=== PATIENT | female | born 1985 | race African-American/Black ===

== ENCOUNTER 2022-04-15 17:38 | Inpatient (IN) | payer BC ==
[2022-04-15] MEDS ORDERED: Acetaminophen 500 MG TAB ONE (18:36)
[2022-04-15] MEDS ORDERED: cefTRIAXone\\ROCEPHIN 1 GM VIAL ONE (18:37)
[2022-04-15 18:51] LABS: #Eosinphils 0.1 10x3/uL (0.0-0.5); #Monocytes 1.5 10x3/uL (0.0-1.1); #Neutrophils 6.8 10x3/uL (1.5-8.4); %Basophils 0.4 % (0.0-2.0); %Eosinophils 0.7 % (0.0-6.0); %Lymphocytes 13.8 % (18.0-47.0); %Monocytes 14.9 % (0.0-10.0); %Neutrophils 69.7 % (40.0-75.0); Hemoglobin 11.2 g/dL (12.0-15.5); Mean Corpuscular HGB CONC 34.7 g/dL (32.0-36.0); Mean Corpuscular Hemoglobin 26.5 pg (27.0-33.0); Mean Corpuscular Volume 76.4 fl (81.6-98.3); Mean Platelet Volume 8.7 fl (7.4-10.4); Platelet Count 133 10x3/uL (150-450); RBC Distribution Width 26.5 % (11.5-14.5); Red Blood Cell (RBC) Count 4.23 10x6/uL (3.90-5.03); White Blood Cell (WBC) Count 9.7 10x3/uL (3.5-10.5)
[2022-04-15 19:03] LABS: ALT (SGPT) 9 U/L (8-55); AST (SGOT) 20 U/L (5-34); Albumin 3.8 g/dL (3.5-5.0); Alkaline Phosphatase 43 U/L (40-110); Anion Gap 16 mmol/L (10-20); BUN (Urea Nitrogen) 27 mg/dL (7.0-18.7); Bilirubin, Total 1.7 mg/dL (0.2-1.2); CK (CPK) 46 U/L (29-168); Calc. Creatinine Clearance 0 mL/min (70-130); Calcium 9.2 mg/dL (7.8-10.44); Carbon Dioxide 30 mmol/L (22-29); Chloride 98 mmol/L (98-107); Estimated GFR 7; Globulin 3.1 g/dL (2.4-3.5); Glucose 84 mg/dL (70-105); Potassium 4.3 mmol/L (3.5-5.1); Protein, Total 6.9 g/dL (6.0-8.3); Sodium 140 mmol/L (136-145)
[2022-04-15 19:20] LABS: Band 1 % (5-11); Lymphocytes 12 % (21-51); Monocytes 14 % (0-10); Reactive Lymphocytes 2 % (0-10)
[2022-04-15 19:21] LABS: SARS-CoV-2 NAA Rapid Test Not Detected (NotDetected)
[2022-04-15 19:21] LABS: Anisocytosis MODERATE=16-30 cells (100X) (0-5/hpf); Macrocytosis SLIGHT = 6-15 cells (100X) (0-5/hpf); Microcytosis SLIGHT = 6-15 cells (100X) (0-5/hpf); Neutrophil 70 % (42-75)
[2022-04-15 19:22] LABS: Hypochromia SLIGHT = 6-15 cells (100X) (0-5/hpf); Target Cells SLIGHT = 2-5 cells (100X) (0-1/hpf)
[2022-04-15 19:26] LABS: Large Platelets SLIGHT; Platelet Morphology Comment Appears Adequate
[2022-04-15] MEDS ORDERED: Azithromycin 500 MG VIAL ONE (19:38)
[2022-04-15] MEDS ORDERED: Morphine 4 MG/ML VIAL ONE (19:58)
[2022-04-15] MEDS ORDERED: Calcium Carbonate 500 MG ChewTAB PO PRN (22:14)
[2022-04-15] MEDS ORDERED: Senokot S 8.6-50 MG TAB PO PRN (22:14)
[2022-04-15] MEDS ORDERED: Guaifenesin DM 100-10/5 ML UDCUP PO PRN (22:14)
[2022-04-15] MEDS ORDERED: Ondansetron PF 4 MG/2 ML Vial IVP PRN (22:14)
[2022-04-15] MEDS ORDERED: Zolpidem Tartrate 5 MG TAB PO PRN (22:14)
[2022-04-15 22:16] LABS: Hep B Surf Ag Non-Reactive S/CO (NonReactive)
[2022-04-15 22:17] LABS: HBSAg Index 0.21 S/CO (0-0.99)
[2022-04-16] MEDS: Acetaminophen 325 MG TAB PO PRN ×2 (01:34→08:59)
[2022-04-16] MEDS ORDERED: Acetaminophen 325 MG TAB ONE ×2 (01:36→09:06)
[2022-04-16 05:01] LABS: Anion Gap 15 mmol/L (10-20); BUN (Urea Nitrogen) 13 mg/dL (7.0-18.7); Calc. Creatinine Clearance 0 mL/min (70-130); Calcium 9.3 mg/dL (7.8-10.44); Carbon Dioxide 29 mmol/L (22-29); Chloride 98 mmol/L (98-107); Estimated GFR 12; Glucose 70 mg/dL (70-105); Potassium 4.1 mmol/L (3.5-5.1); Sodium 138 mmol/L (136-145)
[2022-04-16] MEDS ORDERED: Sevelamer Carbonate 800 MG TAB PO SCH (08:00)
[2022-04-16] MEDS ORDERED: predniSONE 5 MG TAB PO SCH (08:00)
[2022-04-16] MEDS ORDERED: Carvedilol 25 MG TAB PO SCH (08:00)
[2022-04-16] MEDS ORDERED: Calcitriol 0.25 MCG CAP PO SCH (09:00)
[2022-04-16] MEDS ORDERED: Heparin 5,000 UNITS/ML VIAL SC SCH (09:00)
[2022-04-16] MEDS ORDERED: Hydroxychloroquine Sulfate 200 MG TAB PO SCH (09:00)
[2022-04-16] MEDS ORDERED: Heparin 5,000 UNITS/ML VIAL ONE (09:06)
[2022-04-16] MEDS ORDERED: Carvedilol 25 MG TAB ONE (09:07)
[2022-04-16] MEDS ORDERED: Heparin 10,000 UNITS/ 10 ML VIAL SLOW IVP PRN (12:51)
[2022-04-16 13:48] LABS: HBSAB Concentration Less than 8.00 mIU/mL; Hep B Surf AB Non-Reactive (NonReactive)
[2022-04-16] MEDS ORDERED: NIFEdipine XL 60 MG TAB PO SCH (21:00)
== END 2022-04-16 16:01 | disposition home or self-care (01) | DRG 291 ==
LOC: CSHERS 17:38 → CSHERHOLD 21:08
PROVIDERS: ADMIT Student in an Organized Health Care Education/Training Program; ATTEND Nurse Practitioner Family
PROC: 5A1D70Z Performance of Urinary Filtration, Intermittent, Less than 6 Hours Per Day (ICD-10-PCS; principal; 2022-04-15)
DX: I50.33 Acute on chronic diastolic (congestive) heart failure (principal); J96.01 Acute respiratory failure with hypoxia; N18.6 End stage renal disease; T86.12 Kidney transplant failure; Z20.822 Contact with and (suspected) exposure to COVID-19; I34.0 Nonrheumatic mitral (valve) insufficiency; M32.14 Glomerular disease in systemic lupus erythematosus; G89.29 Other chronic pain; I15.8 Other secondary hypertension; Y84.8 Other medical procedures as the cause of abnormal reaction of the patient, or of later complication, without mention of misadventure at the time of the procedure; D63.1 Anemia in chronic kidney disease; D50.9 Iron deficiency anemia, unspecified; Z88.6 Allergy status to analgesic agent; Z88.8 Allergy status to other drugs, medicaments and biological substances; Z79.899 Other long term (current) drug therapy; Z79.51 Long term (current) use of inhaled steroids; Z99.2 Dependence on renal dialysis; Z91.14 Patient's other noncompliance with medication regimen
CPT/HCPCS: 36415; 71045; 80048; 80053; 82550; 83605; 83880; 84484; 85025; 86706; 87040; 87340; 90935; 93005; 94760; G0257; J0456; J0696; J1644; J2270; J7512

== ENCOUNTER 2022-06-09 16:49 | Emergency (ER) | payer BC | END 2022-06-09 18:05 | disposition home or self-care (01) | LOC: CSHERS 16:49 | DX: L93.2 Other local lupus erythematosus (principal); R21 Rash and other nonspecific skin eruption; R05.9 Cough, unspecified; H57.89 Other specified disorders of eye and adnexa; I12.0 Hypertensive chronic kidney disease with stage 5 chronic kidney disease or end stage renal disease; N18.6 End stage renal disease; Z99.2 Dependence on renal dialysis | CPT/HCPCS: 99283 ==

== ENCOUNTER 2022-08-25 22:07 | Inpatient (IN) | payer BC ==
[~2022-08-25 22:07] MED LIST: Iopamidol 300 61% 100 ML VIAL FS ONE
[2022-08-25 23:19] LABS: #Eosinphils 0.5 10x3/uL (0.0-0.5); #Monocytes 0.8 10x3/uL (0.0-1.1); #Neutrophils 5.9 10x3/uL (1.5-8.4); %Basophils 0.4 % (0.0-2.0); %Eosinophils 5.4 % (0.0-6.0); %Monocytes 9.1 % (0.0-10.0); %Neutrophils 68.7 % (40.0-75.0); Hemoglobin 9.4 g/dL (12.0-15.5); Mean Corpuscular HGB CONC 36.4 g/dL (32.0-36.0); Mean Corpuscular Volume 76.8 fl (81.6-98.3); Mean Platelet Volume 8.2 fl (7.4-10.4); Platelet Count 274 10x3/uL (150-450); RBC Distribution Width 18.7 % (11.5-14.5); Red Blood Cell (RBC) Count 3.36 10x6/uL (3.90-5.03); White Blood Cell (WBC) Count 8.5 10x3/uL (3.5-10.5)
[2022-08-25] MEDS ORDERED: Acetaminophen 500 MG TAB ONE (23:32)
[2022-08-25 23:33] LABS: ALT (SGPT) Less than 6 U/L (8-55); AST (SGOT) 13 U/L (5-34); Albumin 3.1 g/dL (3.5-5.0); Alkaline Phosphatase 48 U/L (40-110); Anion Gap 20 mmol/L (10-20); BHCG - Serum Negative (NEGATIVE); BUN (Urea Nitrogen) 57 mg/dL (7.0-18.7); Bilirubin, Total 0.6 mg/dL (0.2-1.2); Calc. Creatinine Clearance 0 mL/min (70-130); Calcium 9.1 mg/dL (7.8-10.44); Carbon Dioxide 22 mmol/L (22-29); Chloride 99 mmol/L (98-107); Estimated GFR 2; Globulin 4.3 g/dL (2.4-3.5); Glucose 82 mg/dL (70-105); Lipase 43 U/L (8-78); Magnesium 2.4 mg/dL (1.6-2.6); Potassium 5.6 mmol/L (3.5-5.1); Pregs Control Background? CLEAR/WHITE (CLR/WHITE); Pregs Control Bar Appear? YES (CONTROL BAR); Protein, Total 7.4 g/dL (6.0-8.3); Sodium 135 mmol/L (136-145)
[2022-08-25] MEDS ORDERED: Morphine 4 MG/ML VIAL ONE (23:40)
[2022-08-26 00:17] LABS: SARS-CoV-2 NAA Rapid Test Not Detected (NotDetected)
[2022-08-26] MEDS ORDERED: Cefepime 1 GM VIAL ONE (00:25)
[2022-08-26] MEDS ORDERED: Zolpidem Tartrate 5 MG TAB PO PRN (02:05)
[2022-08-26] MEDS ORDERED: Calcium Carbonate 500 MG ChewTAB PO PRN (02:05)
[2022-08-26] MEDS ORDERED: Ondansetron PF 4 MG/2 ML Vial IVP PRN (02:05)
[2022-08-26] MEDS ORDERED: Senokot S 8.6-50 MG TAB PO PRN (02:05)
[2022-08-26] MEDS ORDERED: Acetaminophen 325 MG TAB PO PRN (02:05)
[2022-08-26] MEDS ORDERED: Guaifenesin DM 100-10/5 ML UDCUP PO PRN (02:05)
[2022-08-26] MEDS ORDERED: Vancomycin 1 GM in Premix Bag 1 BAG IVPB SCH (02:15)
[2022-08-26] MEDS ORDERED: Calcium Gluc 4.6 MEQ/10 ML (100 MG/ML) SLOW IVP SCH (02:15)
[2022-08-26] MEDS ORDERED: Vancomycin HCl 1 GM in Sodium Chloride 0.9% 250 ML 250 ML IVPB SCH (03:15)
[2022-08-26] MEDS ORDERED: Calcium Gluc 4.6 MEQ/10 ML (100 MG/ML) ONE (03:47)
[2022-08-26 04:27] LABS: Anion Gap 16 mmol/L (10-20); BUN (Urea Nitrogen) 59 mg/dL (7.0-18.7); Calc. Creatinine Clearance 0 mL/min (70-130); Calcium 8.9 mg/dL (7.8-10.44); Carbon Dioxide 24 mmol/L (22-29); Chloride 98 mmol/L (98-107); Estimated GFR 2; Glucose 93 mg/dL (70-105); Sodium 132 mmol/L (136-145)
[2022-08-26 04:29] LABS: Potassium 6.3 mmol/L (3.5-5.1)
[2022-08-26] MEDS ORDERED: Dextrose 50% Abboject 50 ML SYRINGE ONE (04:47)
[2022-08-26] MEDS ORDERED: Insulin Regular 300 UNITS/3 ML VIAL ONE (04:48)
[2022-08-26] MEDS ORDERED: Albuterol Sulfate 2.5 mg/3 ml Neb ONE ×2 (05:15→05:27)
[2022-08-26] MEDS ORDERED: Albuterol Sulfate 2.5 mg/0.5 ml Neb ONE (05:16)
[2022-08-26] MEDS: Sevelamer Carbonate 800 MG TAB PO SCH ×3 (08:32→17:24)
[2022-08-26] MEDS: predniSONE 5 MG TAB PO SCH (08:32)
[2022-08-26] MEDS ORDERED: Famotidine 20 MG TAB PO SCH (09:00)
[2022-08-26 10:11] LABS: HBSAg Index 0.24 S/CO (0-0.99); Hep B Surf Ag Non-Reactive S/CO (NonReactive)
[2022-08-26] MEDS ORDERED: Tacrolimus 1 MG CAP PO SCH (12:45)
[2022-08-26] MEDS ORDERED: methylPREDNISolone Sod Succ 40 MG VIAL IVP SCH (13:30)
[2022-08-26] MEDS ORDERED: Famotidine 20 MG TAB ONE (13:30)
[2022-08-26] MEDS ORDERED: Heparin 5,000 UNITS/ML VIAL ONE ×2 (13:31→20:42)
[2022-08-26] MEDS: Carvedilol 6.25 MG TAB PO SCH ×2 (13:42→21:13)
[2022-08-26] MEDS: Heparin 5,000 UNITS/ML VIAL SC SCH ×2 (13:43→21:12)
[2022-08-26 13:44] LABS: Anion Gap 15 mmol/L (10-20); BUN (Urea Nitrogen) 13 mg/dL (7.0-18.7); Calc. Creatinine Clearance 0 mL/min (70-130); Calcium 9.2 mg/dL (7.8-10.44); Carbon Dioxide 28 mmol/L (22-29); Chloride 98 mmol/L (98-107); Estimated GFR 9; Glucose 72 mg/dL (70-105); Potassium 3.3 mmol/L (3.5-5.1); Sodium 138 mmol/L (136-145)
[2022-08-26] MEDS ORDERED: NIFEdipine XL 30 MG TAB ONE (13:50)
[2022-08-26] MEDS ORDERED: methylPREDNISolone Sod Succ 40 MG VIAL ONE (13:52)
[2022-08-26] MEDS ORDERED: Morphine 4 MG/ML VIAL ONE (13:57)
[2022-08-26] MEDS ORDERED: Morphine 2 MG/ML VIAL SLOW IVP PRN (13:58)
[2022-08-26] MEDS: NIFEdipine XL 30 MG TAB PO SCH (14:07)
[2022-08-26] MEDS: Hydroxychloroquine Sulfate 200 MG TAB PO SCH (14:07)
[2022-08-26] MEDS: Morphine 2 MG/ML VIAL SLOW IVP PRN (14:08)
[2022-08-26] MEDS ORDERED: Vancomycin Hemodialysis Sliding Scale FS SCH (15:45)
[2022-08-26 16:18] LABS: HBSAB Concentration Less than 8.00 mIU/mL; Hep B Core Total Ab Non-Reactive (NonReactive); Hep B Core Total Index 0.21 S/CO (0-0.79); Hep B Surf AB Non-Reactive (NonReactive); Hep C IgG Ab Non-Reactive (NonReactive); Hep C Index 0.14 S/CO (0-0.79)
[2022-08-26] MEDS ORDERED: Ondansetron PF 4 MG/2 ML Vial ONE (19:46)
[2022-08-26] MEDS: Tacrolimus 1 MG CAP PO SCH (21:13)
[2022-08-27] MEDS ORDERED: Morphine 4 MG/ML VIAL ONE ×2 (00:08→04:14)
[2022-08-27] MEDS: Morphine 2 MG/ML VIAL SLOW IVP PRN ×2 (00:14→04:20)
[2022-08-27] MEDS ORDERED: Cefepime 1 GM VIAL ONE (00:54)
[2022-08-27] MEDS ORDERED: Cefepime 1 GM in Sodium Chloride 0.9% 100 ML IVPB SCH (01:00)
[2022-08-27 04:34] LABS: #Monocytes 0.2 10x3/uL (0.0-1.1); #Neutrophils 4.1 10x3/uL (1.5-8.4); %Basophils 0.2 % (0.0-2.0); %Lymphocytes 11.7 % (18.0-47.0); %Monocytes 4.6 % (0.0-10.0); %Neutrophils 83.3 % (40.0-75.0); Hemoglobin 9.4 g/dL (12.0-15.5); Mean Corpuscular HGB CONC 35.5 g/dL (32.0-36.0); Mean Corpuscular Hemoglobin 27.7 pg (27.0-33.0); Mean Corpuscular Volume 78.2 fl (81.6-98.3); Mean Platelet Volume 8.5 fl (7.4-10.4); Platelet Count 237 10x3/uL (150-450); RBC Distribution Width 18.6 % (11.5-14.5); Red Blood Cell (RBC) Count 3.39 10x6/uL (3.90-5.03)
[2022-08-27 04:48] LABS: Anion Gap 15 mmol/L (10-20); BUN (Urea Nitrogen) 27 mg/dL (7.0-18.7); Calc. Creatinine Clearance 0 mL/min (70-130); Carbon Dioxide 27 mmol/L (22-29); Chloride 98 mmol/L (98-107); Estimated GFR 4; Glucose 173 mg/dL (70-105); Potassium 5.3 mmol/L (3.5-5.1); Sodium 135 mmol/L (136-145)
[2022-08-27 07:31] LABS: Vancomycin, Random 15.7 ug/mL (See Comment)
[2022-08-27] MEDS ORDERED: NIFEdipine XL 30 MG TAB ONE (08:11)
[2022-08-27] MEDS ORDERED: Heparin 5,000 UNITS/ML VIAL ONE (08:14)
[2022-08-27] MEDS: Heparin 5,000 UNITS/ML VIAL SC SCH ×5 (08:24→21:38)
[2022-08-27] MEDS: Sevelamer Carbonate 800 MG TAB PO SCH ×3 (08:25→17:14)
[2022-08-27] MEDS: predniSONE 5 MG TAB PO SCH (08:25)
[2022-08-27] MEDS: Hydroxychloroquine Sulfate 200 MG TAB PO SCH (08:25)
[2022-08-27] MEDS: Carvedilol 6.25 MG TAB PO SCH ×2 (08:25→21:31)
[2022-08-27] MEDS: Tacrolimus 1 MG CAP PO SCH ×2 (08:26→21:32)
[2022-08-27] MEDS: NIFEdipine XL 30 MG TAB PO SCH (08:26)
[2022-08-27 13:37] VITALS: BMI 18.5
[2022-08-27] MEDS: Morphine 4 MG/ML VIAL SLOW IVP PRN ×3 (13:53→21:37)
[2022-08-27] MEDS ORDERED: NIFEdipine XL 30 MG TAB PO SCH ×2 (16:00→21:00)
[2022-08-27] MEDS ORDERED: Famotidine 20 MG TAB PO SCH (17:00)
[2022-08-27 21:33] VITALS: BP 157/90
[2022-08-28 00:09] VITALS: TEMP 98
== END 2022-08-27 21:45 | disposition home or self-care (01) | DRG 871 ==
LOC: CSHERS 22:07 → CSHERHOLD 08-26 02:53 → CSHTELE 08-27 12:07
PROVIDERS: ADMIT Student in an Organized Health Care Education/Training Program; ATTEND Family Medicine
PROC: 5A1D70Z Performance of Urinary Filtration, Intermittent, Less than 6 Hours Per Day (ICD-10-PCS; principal; 2022-08-27)
DX: A41.9 Sepsis, unspecified organism (principal); J18.9 Pneumonia, unspecified organism; N18.6 End stage renal disease; J90 Pleural effusion, not elsewhere classified; I50.32 Chronic diastolic (congestive) heart failure; T86.11 Kidney transplant rejection; D84.9 Immunodeficiency, unspecified; Z20.822 Contact with and (suspected) exposure to COVID-19; E87.5 Hyperkalemia; M32.14 Glomerular disease in systemic lupus erythematosus; D63.1 Anemia in chronic kidney disease; I15.8 Other secondary hypertension; E87.6 Hypokalemia; I11.0 Hypertensive heart disease with heart failure; Y83.8 Other surgical procedures as the cause of abnormal reaction of the patient, or of later complication, without mention of misadventure at the time of the procedure; Z88.5 Allergy status to narcotic agent; Z88.8 Allergy status to other drugs, medicaments and biological substances; Z79.899 Other long term (current) drug therapy; Z99.2 Dependence on renal dialysis
CPT/HCPCS: 36415; 36416; 71045; 74177; 80048; 80053; 80202; 83605; 83690; 83735; 84145; 84703; 85025; 86704; 87040; 87340; 90935; 93005; 94644; 94760; G0257; J0610; J0692; J1644; J1815; J2270; J2405; J2920; J3370; J3490; J7050; J7507; J7512; J7611; J7999; Q9967

== ENCOUNTER 2022-10-06 10:09 | Emergency (ER) | payer BC ==
[2022-10-06 10:47] LABS: #Eosinphils 0.1 10x3/uL (0.0-0.5); #Monocytes 0.4 10x3/uL (0.0-1.1); #Neutrophils 10.3 10x3/uL (1.5-8.4); %Basophils 0.2 % (0.0-2.0); %Eosinophils 0.6 % (0.0-6.0); %Lymphocytes 10.5 % (18.0-47.0); %Monocytes 3.5 % (0.0-10.0); %Neutrophils 84.5 % (40.0-75.0); Hemoglobin 12.1 g/dL (12.0-15.5); Mean Corpuscular HGB CONC 36.2 g/dL (32.0-36.0); Mean Corpuscular Hemoglobin 28.4 pg (27.0-33.0); Mean Corpuscular Volume 78.4 fl (81.6-98.3); Platelet Count 179 10x3/uL (150-450); RBC Distribution Width 21.2 % (11.5-14.5); Red Blood Cell (RBC) Count 4.26 10x6/uL (3.90-5.03); White Blood Cell (WBC) Count 12.2 10x3/uL (3.5-10.5)
[2022-10-06 10:59] LABS: ALT (SGPT) 9 U/L (8-55); AST (SGOT) 17 U/L (5-34); Albumin 3.8 g/dL (3.5-5.0); Alkaline Phosphatase 59 U/L (40-110); Anion Gap 24 mmol/L (10-20); BUN (Urea Nitrogen) 66 mg/dL (7.0-18.7); Bilirubin, Total 0.6 mg/dL (0.2-1.2); Calc. Creatinine Clearance 0 mL/min (70-130); Calcium 8.9 mg/dL (7.8-10.44); Carbon Dioxide 25 mmol/L (22-29); Chloride 96 mmol/L (98-107); Estimated GFR 2; Globulin 3.6 g/dL (2.4-3.5); Glucose 110 mg/dL (70-105); Potassium 5.4 mmol/L (3.5-5.1); Protein, Total 7.4 g/dL (6.0-8.3); Sodium 140 mmol/L (136-145)
[2022-10-06] MEDS ORDERED: Ondansetron PF 4 MG/2 ML Vial ONE (11:47)
[2022-10-06] MEDS ORDERED: Morphine 4 MG/ML VIAL ONE (11:47)
[2022-10-06 16:26] LABS: HBSAg Index 0.19 S/CO (0-0.99); Hep B Surf Ag Non-Reactive S/CO (NonReactive)
[2022-10-06 23:34] LABS: HBSAB Concentration Less than 8.00 mIU/mL; Hep B Core Total Ab Non-Reactive (NonReactive); Hep B Core Total Index 0.13 S/CO (0-0.79); Hep B Surf AB Non-Reactive (NonReactive); Hep C IgG Ab Non-Reactive (NonReactive); Hep C Index 0.09 S/CO (0-0.79)
== END 2022-10-06 19:02 | disposition home or self-care (01) ==
LOC: CSHERS 10:09
DX: E87.70 Fluid overload, unspecified (principal); I12.0 Hypertensive chronic kidney disease with stage 5 chronic kidney disease or end stage renal disease; N18.6 End stage renal disease; Z99.2 Dependence on renal dialysis
CPT/HCPCS: 71045; 80053; 83880; 84484; 85025; 86704; 90935; 93005; 96374; 96375; G0257; J2270; J2405

== ENCOUNTER 2023-01-27 04:24 | Emergency (ER) | payer BC ==
[2023-01-27 05:17] LABS: #Monocytes 0.3 10x3/uL (0.0-1.1); #Neutrophils 13.1 10x3/uL (1.5-8.4); %Basophils 0.2 % (0.0-2.0); %Eosinophils 0.1 % (0.0-6.0); %Lymphocytes 8.1 % (18.0-47.0); %Monocytes 1.7 % (0.0-10.0); %Neutrophils 89.6 % (40.0-75.0); Hemoglobin 10.4 g/dL (12.0-15.5); Mean Corpuscular HGB CONC 36.5 g/dL (32.0-36.0); Mean Corpuscular Hemoglobin 30.3 pg (27.0-33.0); Mean Corpuscular Volume 83.1 fl (81.6-98.3); Mean Platelet Volume 9.5 fl (7.4-10.4); Platelet Count 192 10x3/uL (150-450); Red Blood Cell (RBC) Count 3.43 10x6/uL (3.90-5.03); White Blood Cell (WBC) Count 14.6 10x3/uL (3.5-10.5)
[2023-01-27 05:23] LABS: ALT (SGPT) 11 U/L (8-55); AST (SGOT) 24 U/L (5-34); Albumin 4.3 g/dL (3.5-5.0); Alkaline Phosphatase 58 U/L (40-110); Anion Gap 24 mmol/L (10-20); BUN (Urea Nitrogen) 54 mg/dL (7.0-18.7); Bilirubin, Total 0.4 mg/dL (0.2-1.2); Calc. Creatinine Clearance 0 mL/min (70-130); Calcium 10.3 mg/dL (7.8-10.44); Carbon Dioxide 21 mmol/L (22-29); Chloride 99 mmol/L (98-107); Estimated GFR 3; Globulin 3.5 g/dL (2.4-3.5); Glucose 133 mg/dL (70-105); Lipase 118 U/L (8-78); Potassium 5.5 mmol/L (3.5-5.1); Protein, Total 7.8 g/dL (6.0-8.3); Sodium 138 mmol/L (136-145)
[2023-01-27] MEDS ORDERED: LOKELMA 10 GM PACKET PO SCH (08:00)
== END 2023-01-27 07:05 | disposition home or self-care (01) ==
LOC: CSHERS 04:24
DX: E87.70 Fluid overload, unspecified (principal); I12.0 Hypertensive chronic kidney disease with stage 5 chronic kidney disease or end stage renal disease; N18.6 End stage renal disease; E87.5 Hyperkalemia; D72.829 Elevated white blood cell count, unspecified
CPT/HCPCS: 71045; 80053; 83690; 85025; 93005

== ENCOUNTER 2023-05-26 15:03 | Inpatient (IN) | payer BC, SELFPAY ==
[2023-05-26 17:22] LABS: #Monocytes 0.8 10x3/uL (0.0-1.1); #Neutrophils 4.2 10x3/uL (1.5-8.4); %Basophils 0.2 % (0.0-2.0); %Eosinophils 0.6 % (0.0-6.0); %Lymphocytes 20.2 % (18.0-47.0); %Monocytes 12.3 % (0.0-10.0); %Neutrophils 65.9 % (40.0-75.0); Hematocrit 20.5 % (34.9-44.5); Hemoglobin 7.5 g/dL (12.0-15.5); Mean Corpuscular HGB CONC 36.6 g/dL (32.0-36.0); Mean Corpuscular Hemoglobin 29.8 pg (27.0-33.0); Mean Corpuscular Volume 81.3 fl (81.6-98.3); Mean Platelet Volume 9.1 fl (7.4-10.4); Platelet Count 143 10x3/uL (150-450); RBC Distribution Width 14.8 % (11.5-14.5); Red Blood Cell (RBC) Count 2.52 10x6/uL (3.90-5.03); White Blood Cell (WBC) Count 6.4 10x3/uL (3.5-10.5)
[2023-05-26 17:24] LABS: BHCG - Serum Negative (NEGATIVE); Pregs Control Background? CLEAR/WHITE (CLR/WHITE); Pregs Control Bar Appear? YES (CONTROL BAR)
[2023-05-26 17:30] LABS: ALT (SGPT) 17 U/L (8-55); AST (SGOT) 19 U/L (5-34); Albumin 3.4 g/dL (3.5-5.0); Alkaline Phosphatase 42 U/L (40-110); Anion Gap 17 mmol/L (10-20); BUN (Urea Nitrogen) 43 mg/dL (7.0-18.7); Bilirubin, Total 0.4 mg/dL (0.2-1.2); Calc. Creatinine Clearance 0 mL/min (70-130); Calcium 9.2 mg/dL (7.8-10.44); Carbon Dioxide 26 mmol/L (22-29); Chloride 97 mmol/L (98-107); Estimated GFR 3; Globulin 3.1 g/dL (2.4-3.5); Glucose 118 mg/dL (70-105); Potassium 3.8 mmol/L (3.5-5.1); Protein, Total 6.5 g/dL (6.0-8.3); Sodium 136 mmol/L (136-145)
[2023-05-26] MEDS ORDERED: Morphine 4 MG/ML VIAL ONE (17:32)
[2023-05-26] MEDS ORDERED: Ondansetron PF 4 MG/2 ML Vial ONE (17:33)
[2023-05-26] MEDS ORDERED: NIFEdipine XL 30 MG TAB ONE (20:04)
[2023-05-26] MEDS ORDERED: Carvedilol 25 MG TAB ONE (20:04)
[2023-05-26 20:51] LABS: Troponin I 0.015 ng/mL (< 0.028)
[2023-05-26] MEDS ORDERED: fentaNYL 50 mcg/mL 1 mL Vial ONE (23:00)
[2023-05-26] MEDS ORDERED: Senokot S 8.6-50 MG TAB PO PRN (23:16)
[2023-05-26] MEDS ORDERED: Piperacillin/Tazobactam 2.25 GM in Sodium Chloride 0.9% 100 ML IVPB SCH (23:30)
[2023-05-26] MEDS ORDERED: Piperacillin/Tazobactam 3.375 GM in Sodium Chloride 0.9% 100 ML IVPB SCH (23:59)
[2023-05-27] MEDS ORDERED: diphenhydrAMINE 50 MG/ML VIAL IVP SCH ×2 (00:01→09:15)
[2023-05-27] MEDS ORDERED: Vancomycin Hemodialysis Sliding Scale FS SCH (00:15)
[2023-05-27] MEDS ORDERED: Vancomycin HCl 1 GM in Sodium Chloride 0.9% 250 ML 250 ML IVPB SCH (00:30)
[2023-05-27 03:29] VITALS: BMI 15.7
[2023-05-27] MEDS: Piperacillin/Tazobactam 3.375 GM in Sodium Chloride 0.9% 100 ML IVPB SCH ×2 (04:54→16:20)
[2023-05-27 05:03] LABS: Anion Gap 16 mmol/L (10-20); BUN (Urea Nitrogen) 44 mg/dL (7.0-18.7); Calc. Creatinine Clearance 4 mL/min (70-130); Calcium 8.6 mg/dL (7.8-10.44); Carbon Dioxide 25 mmol/L (22-29); Chloride 100 mmol/L (98-107); Estimated GFR 3; Glucose 111 mg/dL (70-105); Magnesium 2.3 mg/dL (1.6-2.6); Potassium 4.2 mmol/L (3.5-5.1); Sodium 137 mmol/L (136-145)
[2023-05-27 05:08] LABS: #Eosinphils 0.1 10x3/uL (0.0-0.5); #Monocytes 0.9 10x3/uL (0.0-1.1); #Neutrophils 3.9 10x3/uL (1.5-8.4); %Eosinophils 0.8 % (0.0-6.0); %Lymphocytes 19.3 % (18.0-47.0); %Monocytes 15.1 % (0.0-10.0); %Neutrophils 64.5 % (40.0-75.0); Hematocrit 20.2 % (34.9-44.5); Hemoglobin 7.3 g/dL (12.0-15.5); Mean Corpuscular HGB CONC 36.1 g/dL (32.0-36.0); Mean Corpuscular Hemoglobin 29.4 pg (27.0-33.0); Mean Corpuscular Volume 81.5 fl (81.6-98.3); Mean Platelet Volume 9.1 fl (7.4-10.4); Platelet Count 133 10x3/uL (150-450); RBC Distribution Width 14.8 % (11.5-14.5); Red Blood Cell (RBC) Count 2.48 10x6/uL (3.90-5.03); White Blood Cell (WBC) Count 6.1 10x3/uL (3.5-10.5)
[2023-05-27] MEDS: Morphine 4 MG/ML VIAL SLOW IVP PRN ×2 (05:27→16:21)
[2023-05-27] MEDS ORDERED: Carvedilol 25 MG TAB PO SCH (07:30)
[2023-05-27 08:00] LABS: Iron 16 ug/dL (50-170); Iron Binding Capacity, Total 145 mcg/dL (265-497)
[2023-05-27] MEDS ORDERED: diphenhydrAMINE 25 MG CAP PO PRN (08:30)
[2023-05-27] MEDS: predniSONE 5 MG TAB PO SCH (08:40)
[2023-05-27] MEDS: Heparin 5,000 UNITS/ML VIAL SC SCH ×4 (08:40→23:04)
[2023-05-27] MEDS: Carvedilol 25 MG TAB PO SCH ×2 (08:40→22:28)
[2023-05-27] MEDS: Polyethylene Glycol 3350 17 GM Packet PO SCH (08:44)
[2023-05-27] MEDS ORDERED: Morphine 2 MG/ML VIAL SLOW IVP SCH (08:45)
[2023-05-27] MEDS: Hydroxychloroquine Sulfate 200 MG TAB PO SCH (08:58)
[2023-05-27] MEDS ORDERED: Docusate 100 MG CAP PO SCH (09:00)
[2023-05-27] MEDS ORDERED: NIFEdipine XL 60 MG TAB PO SCH (09:00)
[2023-05-27] MEDS ORDERED: Lidocaine 2% 6 ML (Jelly) SYR ONE (11:43)
[2023-05-27] MEDS ORDERED: Lidocaine 2% 20 ml MDV ONE (11:44)
[2023-05-27] MEDS ORDERED: Bupivacaine 0.25% HCL 30 ML VIAL ONE (11:45)
[2023-05-27] MEDS ORDERED: EPINEPHrine 1 MG/ML AMP ONE (11:46)
[2023-05-27] MEDS ORDERED: Dexamethasone 4 mg/ml Vial ONE (12:51)
[2023-05-27] MEDS ORDERED: Rocuronium Bromide 10 MG/ML (10ML VIAL) ONE (12:51)
[2023-05-27] MEDS ORDERED: Ondansetron PF 4 MG/2 ML Vial ONE (12:51)
[2023-05-27] MEDS ORDERED: fentaNYL 50 mcg/mL 1 mL Vial ONE (12:51)
[2023-05-27] MEDS ORDERED: PROPOFOL 20 ML ONE ×2 (12:51→13:14)
[2023-05-27] MEDS ORDERED: SUGAMMADEX SODIUM 200 MG/2 ML VIAL ONE (12:53)
[2023-05-27] MEDS ORDERED: KETAMINE 100 MG/ML (5ML VIAL) ONE (13:01)
[2023-05-27] MEDS ORDERED: Midazolam HCl 2 mg/2 ml Vial ONE (13:02)
[2023-05-27 14:10] LABS: Complement-C4 29.6 mg/dL (15-57)
[2023-05-27] MEDS ORDERED: Morphine 2 MG/ML VIAL SLOW IVP PRN (17:25)
[2023-05-27] MEDS: diphenhydrAMINE 50 MG/ML VIAL IVP PRN (18:00)
[2023-05-27] MEDS: hydrOXYzine 25 MG TAB PO PRN (21:35)
[2023-05-27 21:42] LABS: Hep B Surf Ag Non-Reactive S/CO (NonReactive)
[2023-05-27 22:21] LABS: HBSAg Index 0.18 S/CO (0-0.99)
[2023-05-27] MEDS: Senokot S 8.6-50 MG TAB PO SCH (22:26)
[2023-05-27] MEDS: NIFEdipine XL 60 MG TAB PO SCH (22:26)
[2023-05-28] MEDS: diphenhydrAMINE 50 MG/ML VIAL IVP PRN (00:14)
[2023-05-28 03:23] LABS: HBSAB Concentration Less than 8.00 mIU/mL; Hep B Core Total Ab Non-Reactive (NonReactive); Hep B Core Total Index 0.14 S/CO (0-0.79); Hep B Surf AB Non-Reactive (NonReactive)
[2023-05-28 03:24] LABS: Hep C IgG Ab Non-Reactive S/CO (NonReactive)
[2023-05-28] MEDS: Piperacillin/Tazobactam 3.375 GM in Sodium Chloride 0.9% 100 ML IVPB SCH (03:39)
[2023-05-28 05:29] LABS: #Monocytes 0.8 10x3/uL (0.0-1.1); %Basophils 0.2 % (0.0-2.0); %Eosinophils 0.3 % (0.0-6.0); %Lymphocytes 15.4 % (18.0-47.0); %Monocytes 14.7 % (0.0-10.0); %Neutrophils 69.1 % (40.0-75.0); Hematocrit 20.4 % (34.9-44.5); Hemoglobin 7.3 g/dL (12.0-15.5); Mean Corpuscular HGB CONC 35.8 g/dL (32.0-36.0); Mean Corpuscular Hemoglobin 29.6 pg (27.0-33.0); Mean Corpuscular Volume 82.6 fl (81.6-98.3); Mean Platelet Volume 9.8 fl (7.4-10.4); Platelet Count 141 10x3/uL (150-450); RBC Distribution Width 14.6 % (11.5-14.5); Red Blood Cell (RBC) Count 2.47 10x6/uL (3.90-5.03); White Blood Cell (WBC) Count 5.7 10x3/uL (3.5-10.5)
[2023-05-28 05:44] LABS: Anion Gap 14 mmol/L (10-20); BUN (Urea Nitrogen) 9 mg/dL (7.0-18.7); Calc. Creatinine Clearance 10 mL/min (70-130); Calcium 8.7 mg/dL (7.8-10.44); Carbon Dioxide 29 mmol/L (22-29); Chloride 103 mmol/L (98-107); Estimated GFR 9; Glucose 125 mg/dL (70-105); Potassium 3.9 mmol/L (3.5-5.1); Sodium 142 mmol/L (136-145)
[2023-05-28] MEDS: Hydroxychloroquine Sulfate 200 MG TAB PO SCH (08:43)
[2023-05-28] MEDS: Carvedilol 25 MG TAB PO SCH ×2 (08:43→20:27)
[2023-05-28] MEDS: predniSONE 5 MG TAB PO SCH (08:43)
[2023-05-28] MEDS: Polyethylene Glycol 3350 17 GM Packet PO SCH (08:43)
[2023-05-28] MEDS: Heparin 5,000 UNITS/ML VIAL SC SCH ×2 (08:44→20:27)
[2023-05-28] MEDS: Iron, Sodium Ferric Gluconate 250 MG in Sodium Chloride 0.9% 250 ML 250 ML IVPB SCH (08:45)
[2023-05-28] MEDS ORDERED: Epoetin (ESRD) 10,000 UNITS/ML VIAL SC SCH (09:00)
[2023-05-28] MEDS: hydrOXYzine 25 MG TAB PO PRN ×2 (12:01→20:34)
[2023-05-28 12:41] LABS: dsDNA IgG Antibody 2.9 IU/mL (<10 Negative)
[2023-05-28] MEDS ORDERED: diphenhydrAMINE 50 MG/ML VIAL IVP SCH (13:45)
[2023-05-28] MEDS ORDERED: Hydrocortisone 2.5%/Pramoxine 1% CRM 30 GM TUBE TOP SCH (15:00)
[2023-05-28] MEDS: Senokot S 8.6-50 MG TAB PO SCH ×2 (15:49→20:27)
[2023-05-28] MEDS ORDERED: Vancomycin HCl 500 MG in Sodium Chloride 0.9% 100 ML IVPB SCH (17:00)
[2023-05-28 20:01] LABS: #Monocytes 0.9 10x3/uL (0.0-1.1); #Neutrophils 5.1 10x3/uL (1.5-8.4); %Basophils 0.3 % (0.0-2.0); %Eosinophils 0.1 % (0.0-6.0); %Lymphocytes 13.6 % (18.0-47.0); %Monocytes 12.3 % (0.0-10.0); %Neutrophils 73.4 % (40.0-75.0); Hematocrit 23.2 % (34.9-44.5); Hemoglobin 8.4 g/dL (12.0-15.5); Mean Corpuscular HGB CONC 36.2 g/dL (32.0-36.0); Mean Corpuscular Hemoglobin 29.6 pg (27.0-33.0); Mean Corpuscular Volume 81.7 fl (81.6-98.3); Mean Platelet Volume 9.1 fl (7.4-10.4); Platelet Count 162 10x3/uL (150-450); RBC Distribution Width 14.7 % (11.5-14.5); Red Blood Cell (RBC) Count 2.84 10x6/uL (3.90-5.03)
[2023-05-28 20:08] LABS: Anion Gap 12 mmol/L (10-20); BUN (Urea Nitrogen) 4 mg/dL (7.0-18.7); Calc. Creatinine Clearance 18 mL/min (70-130); Carbon Dioxide 32 mmol/L (22-29); Chloride 102 mmol/L (98-107); Estimated GFR 19; Glucose 138 mg/dL (70-105); Sodium 142 mmol/L (136-145)
[2023-05-28] MEDS: NIFEdipine XL 60 MG TAB PO SCH (20:27)
[2023-05-28] MEDS ORDERED: Vancomycin HCl 1 GM in Sodium Chloride 0.9% 250 ML 250 ML IVPB SCH (21:30)
[2023-05-28] MEDS ORDERED: Vancomycin Hemodialysis Sliding Scale FS SCH (21:30)
[2023-05-28 22:25] LABS: SARS-CoV-2 NAA Rapid Test Not Detected (NotDetected)
[2023-05-28] MEDS: diphenhydrAMINE 25 MG CAP PO PRN (23:25)
[2023-05-28] MEDS ORDERED: Piperacillin/Tazobactam 3.375 GM in Sodium Chloride 0.9% 100 ML IVPB SCH (23:59)
[2023-05-29] MEDS ORDERED: diphenhydrAMINE 25 MG CAP PO SCH (01:45)
[2023-05-29] MEDS ORDERED: Zolpidem Tartrate 5 MG TAB PO SCH (02:00)
[2023-05-29] MEDS ORDERED: Calamine/Zinc Oxide 177 ML LOTION TP PRN (02:17)
[2023-05-29] MEDS ORDERED: diphenhydrAMINE 50 MG/ML VIAL IVP SCH (02:30)
[2023-05-29 04:41] LABS: #Neutrophils 4.9 10x3/uL (1.5-8.4); %Basophils 0.1 % (0.0-2.0); %Eosinophils 0.4 % (0.0-6.0); %Lymphocytes 15.8 % (18.0-47.0); %Monocytes 13.9 % (0.0-10.0); %Neutrophils 69.4 % (40.0-75.0); Hemoglobin 7.8 g/dL (12.0-15.5); Mean Corpuscular HGB CONC 35.5 g/dL (32.0-36.0); Mean Corpuscular Volume 81.8 fl (81.6-98.3); Mean Platelet Volume 9.4 fl (7.4-10.4); Platelet Count 161 10x3/uL (150-450); RBC Distribution Width 14.6 % (11.5-14.5); Red Blood Cell (RBC) Count 2.69 10x6/uL (3.90-5.03); White Blood Cell (WBC) Count 7.1 10x3/uL (3.5-10.5)
[2023-05-29 04:42] LABS: Anion Gap 10 mmol/L (10-20); BUN (Urea Nitrogen) 4 mg/dL (7.0-18.7); Calc. Creatinine Clearance 13 mL/min (70-130); Calcium 8.9 mg/dL (7.8-10.44); Carbon Dioxide 30 mmol/L (22-29); Chloride 102 mmol/L (98-107); Estimated GFR 13; Glucose 120 mg/dL (70-105); Potassium 3.4 mmol/L (3.5-5.1); Sodium 139 mmol/L (136-145)
[2023-05-29] MEDS ORDERED: Carvedilol 25 MG TAB PO SCH (06:00)
[2023-05-29] MEDS ORDERED: Ipratropium/Albuterol 3 ML NEB NEB PRN (09:21)
[2023-05-29] MEDS ORDERED: LevoFLOXacin 750 mg/D5W 750 MG in Premix Bag 1 BAG IVPB SCH (09:30)
[2023-05-29 10:15] LABS: Actual Bicarbonate (HCO3v) 27.6 mEq/L (22-28); Base Excess 4.3 mEq/L (-2 - +2); Calcium, Ionized (venous) 1.13 mmol/L (1.16-1.32); Chloride (VBG) 101 mmol/L (98-106); Hematocrit-VBG 26 % (36.0-47.0); Hemoglobin (Hb) 8.7 g/dL (11.7-15.5); Potassium (VBG) 3.69 mmol/L (3.70-5.30); Puncture Site Other Site; RapidComm Collect By LAB; Sodium 138.6 mmol/L (133-146); pH (venous) 7.508 (7.32-7.43)
[2023-05-29] MEDS: Ipratropium/Albuterol 3 ML NEB NEB SCH ×4 (11:08→23:15)
[2023-05-29] MEDS: Heparin 5,000 UNITS/ML VIAL SC SCH ×2 (12:26→20:48)
[2023-05-29] MEDS: Polyethylene Glycol 3350 17 GM Packet PO SCH (12:26)
[2023-05-29] MEDS: Senokot S 8.6-50 MG TAB PO SCH ×2 (12:35→20:49)
[2023-05-29] MEDS: Hydroxychloroquine Sulfate 200 MG TAB PO SCH (12:35)
[2023-05-29] MEDS: predniSONE 5 MG TAB PO SCH (12:36)
[2023-05-29] MEDS: Carvedilol 25 MG TAB PO SCH ×2 (12:37→20:47)
[2023-05-29] MEDS ORDERED: Acetaminophen 325 MG TAB PO PRN (13:27)
[2023-05-29] MEDS: Piperacillin/Tazobactam 3.375 GM in Sodium Chloride 0.9% 100 ML IVPB SCH ×2 (14:38→23:23)
[2023-05-29] MEDS ORDERED: HYDROmorphone 2 MG TAB PO SCH ×2 (14:45→23:59)
[2023-05-29] MEDS: methylPREDNISolone Sod Succ 40 MG VIAL IVP SCH ×2 (14:51→23:28)
[2023-05-29] MEDS: diphenhydrAMINE 25 MG CAP PO PRN (19:55)
[2023-05-29] MEDS: Iron, Sodium Ferric Gluconate 250 MG in Sodium Chloride 0.9% 250 ML 250 ML IVPB SCH (20:33)
[2023-05-29] MEDS: NIFEdipine XL 60 MG TAB PO SCH (20:48)
[2023-05-29] MEDS: Saccharomyces boulardii 250 MG CAP PO SCH (20:54)
[2023-05-29] MEDS ORDERED: Famotidine 20 MG TAB PO SCH (21:00)
[2023-05-30] MEDS: Ipratropium/Albuterol 3 ML NEB NEB SCH ×6 (03:40→23:13)
[2023-05-30 03:42] LABS: #Monocytes 0.2 10x3/uL (0.0-1.1); #Neutrophils 5.8 10x3/uL (1.5-8.4); %Basophils 0.2 % (0.0-2.0); %Lymphocytes 7.2 % (18.0-47.0); %Monocytes 2.5 % (0.0-10.0); %Neutrophils 89.8 % (40.0-75.0); Hematocrit 22.2 % (34.9-44.5); Mean Corpuscular Hemoglobin 29.5 pg (27.0-33.0); Mean Corpuscular Volume 81.9 fl (81.6-98.3); Mean Platelet Volume 9.3 fl (7.4-10.4); Platelet Count 183 10x3/uL (150-450); RBC Distribution Width 14.6 % (11.5-14.5); Red Blood Cell (RBC) Count 2.71 10x6/uL (3.90-5.03); White Blood Cell (WBC) Count 6.4 10x3/uL (3.5-10.5)
[2023-05-30 03:47] LABS: ALT (SGPT) 17 U/L (8-55); AST (SGOT) 16 U/L (5-34); Albumin 3.4 g/dL (3.5-5.0); Alkaline Phosphatase 54 U/L (40-110); Anion Gap 19 mmol/L (10-20); BUN (Urea Nitrogen) 17 mg/dL (7.0-18.7); Bilirubin, Total 0.9 mg/dL (0.2-1.2); Calc. Creatinine Clearance 8 mL/min (70-130); Calcium 9.6 mg/dL (7.8-10.44); Carbon Dioxide 24 mmol/L (22-29); Chloride 99 mmol/L (98-107); Estimated GFR 7; Globulin 3.7 g/dL (2.4-3.5); Glucose 161 mg/dL (70-105); Potassium 4.3 mmol/L (3.5-5.1); Protein, Total 7.1 g/dL (6.0-8.3); Sodium 138 mmol/L (136-145)
[2023-05-30] MEDS: diphenhydrAMINE 25 MG CAP PO PRN (04:36)
[2023-05-30] MEDS: methylPREDNISolone Sod Succ 40 MG VIAL IVP SCH (06:30)
[2023-05-30] MEDS: Heparin 5,000 UNITS/ML VIAL SC SCH ×3 (08:23→21:52)
[2023-05-30] MEDS: Polyethylene Glycol 3350 17 GM Packet PO SCH (08:26)
[2023-05-30] MEDS: Carvedilol 25 MG TAB PO SCH ×2 (08:26→15:28)
[2023-05-30] MEDS ORDERED: predniSONE 20 MG TAB PO SCH (08:30)
[2023-05-30] MEDS: Hydroxychloroquine Sulfate 200 MG TAB PO SCH (08:30)
[2023-05-30] MEDS: Famotidine 20 MG TAB PO SCH (08:30)
[2023-05-30] MEDS: Senokot S 8.6-50 MG TAB PO SCH ×2 (08:31→21:49)
[2023-05-30] MEDS: Iron, Sodium Ferric Gluconate 250 MG in Sodium Chloride 0.9% 250 ML 250 ML IVPB SCH (12:52)
[2023-05-30] MEDS: NIFEdipine XL 60 MG TAB PO SCH (21:48)
[2023-05-30] MEDS: Saccharomyces boulardii 250 MG CAP PO SCH (21:48)
[2023-05-30] MEDS ORDERED: Loperamide HCl 2 MG CAP PO SCH (22:15)
[2023-05-30] MEDS ORDERED: Zolpidem Tartrate 5 MG TAB PO PRN (23:28)
[2023-05-31] MEDS ORDERED: Labetalol HCl 100 MG/20 ML VIAL SLOW IVP PRN (01:08)
[2023-05-31] MEDS ORDERED: cloNIDine 0.1 MG TAB PO SCH (01:15)
[2023-05-31] MEDS ORDERED: HYDROmorphone 2 MG TAB PO SCH (01:15)
[2023-05-31] MEDS: Ipratropium/Albuterol 3 ML NEB NEB SCH ×4 (03:01→15:15)
[2023-05-31 04:29] LABS: #Neutrophils 8.1 10x3/uL (1.5-8.4); %Basophils 0.2 % (0.0-2.0); %Lymphocytes 8.1 % (18.0-47.0); %Monocytes 9.5 % (0.0-10.0); %Neutrophils 81.7 % (40.0-75.0); Hematocrit 22.5 % (34.9-44.5); Hemoglobin 8.2 g/dL (12.0-15.5); Mean Corpuscular HGB CONC 36.4 g/dL (32.0-36.0); Mean Corpuscular Hemoglobin 29.9 pg (27.0-33.0); Mean Corpuscular Volume 82.1 fl (81.6-98.3); Mean Platelet Volume 9.5 fl (7.4-10.4); Platelet Count 230 10x3/uL (150-450); RBC Distribution Width 15.1 % (11.5-14.5); Red Blood Cell (RBC) Count 2.74 10x6/uL (3.90-5.03)
[2023-05-31 04:47] LABS: ALT (SGPT) 14 U/L (8-55); AST (SGOT) 14 U/L (5-34); Albumin 3.4 g/dL (3.5-5.0); Alkaline Phosphatase 55 U/L (40-110); Anion Gap 17 mmol/L (10-20); BUN (Urea Nitrogen) 17 mg/dL (7.0-18.7); Bilirubin, Total 0.4 mg/dL (0.2-1.2); Calc. Creatinine Clearance 10 mL/min (70-130); Calcium 9.3 mg/dL (7.8-10.44); Carbon Dioxide 28 mmol/L (22-29); Chloride 98 mmol/L (98-107); Estimated GFR 9; Globulin 3.7 g/dL (2.4-3.5); Glucose 175 mg/dL (70-105); Potassium 3.5 mmol/L (3.5-5.1); Protein, Total 7.1 g/dL (6.0-8.3); Sodium 139 mmol/L (136-145)
[2023-05-31] MEDS ORDERED: predniSONE 20 MG TAB PO SCH (08:00)
[2023-05-31] MEDS ORDERED: LevoFLOXacin 500 MG TAB PO SCH (09:00)
[2023-05-31] MEDS: Iron, Sodium Ferric Gluconate 250 MG in Sodium Chloride 0.9% 250 ML 250 ML IVPB SCH (09:10)
[2023-05-31] MEDS: Carvedilol 25 MG TAB PO SCH (09:13)
[2023-05-31] MEDS: Hydroxychloroquine Sulfate 200 MG TAB PO SCH (09:14)
[2023-05-31] MEDS: Famotidine 20 MG TAB PO SCH (09:14)
[2023-05-31] MEDS: Polyethylene Glycol 3350 17 GM Packet PO SCH (09:15)
[2023-05-31] MEDS: Senokot S 8.6-50 MG TAB PO SCH (09:16)
[2023-05-31] MEDS: Heparin 5,000 UNITS/ML VIAL SC SCH (09:26)
[2023-05-31 12:46] VITALS: BP 172/84; TEMP 97.8
[2023-06-03 21:08] LABS: Mycoplasma pneumoniae IgG AB 183 U/mL (0-99); Mycoplasma pneumoniae IgM AB Less than 770 U/mL (0-769)
== END 2023-05-31 17:40 | disposition home or self-care (01) | DRG 871 ==
LOC: CSHERS 15:03 → CSHTELE 22:36
PROVIDERS: ADMIT Family Medicine; ATTEND Family Medicine
PROC: 0WJP7ZZ Inspection of Gastrointestinal Tract, Via Natural or Artificial Opening Approach (ICD-10-PCS; 2023-05-27)
PROC: 4A043R1 Measurement of Venous Saturation, Peripheral, Percutaneous Approach (ICD-10-PCS; principal; 2023-05-28)
PROC: 5A1D70Z Performance of Urinary Filtration, Intermittent, Less than 6 Hours Per Day (ICD-10-PCS; 2023-05-28)
DX: A41.59 Other Gram-negative sepsis (principal); I50.33 Acute on chronic diastolic (congestive) heart failure; J15.6 Pneumonia due to other Gram-negative bacteria; J96.01 Acute respiratory failure with hypoxia; N18.6 End stage renal disease; T86.11 Kidney transplant rejection; I31.39 Other pericardial effusion (noninflammatory); I13.2 Hypertensive heart and chronic kidney disease with heart failure and with stage 5 chronic kidney disease, or end stage renal disease; Z68.1 Body mass index [BMI] 19.9 or less, adult; D84.89 Other immunodeficiencies; Z20.822 Contact with and (suspected) exposure to COVID-19; M32.9 Systemic lupus erythematosus, unspecified; K59.09 Other constipation; I15.0 Renovascular hypertension; D63.1 Anemia in chronic kidney disease; K62.89 Other specified diseases of anus and rectum; I16.0 Hypertensive urgency; R63.6 Underweight; G89.4 Chronic pain syndrome; D50.9 Iron deficiency anemia, unspecified; D69.6 Thrombocytopenia, unspecified; Y83.8 Other surgical procedures as the cause of abnormal reaction of the patient, or of later complication, without mention of misadventure at the time of the procedure; Z88.8 Allergy status to other drugs, medicaments and biological substances; Z79.52 Long term (current) use of systemic steroids; Z99.2 Dependence on renal dialysis; Z79.899 Other long term (current) drug therapy; Z82.49 Family history of ischemic heart disease and other diseases of the circulatory system
CPT/HCPCS: 36415; 71045; 71250; 74176; 80048; 80053; 80202; 82728; 82805; 83540; 83550; 83735; 83880; 84145; 84484; 84703; 85025; 85652; 86140; 86160; 86225; 86704; 86850; 86900; 86901; 87040; 87070; 87081; 87205; 87633; 90935; 93005; 93010; 94640; 94760; 94799; 96361; 96374; 96375; G0257; J0171; J1100; J1200; J1644; J1956; J2250; J2270; J2272; J2405; J2543; J2704; J2916; J2920; J3010; J3370; J3490; J7050; J7512; J7620; Q4081; S0020